=== PATIENT | male | born 1985 | race African-American/Black ===

== ENCOUNTER 2017-06-30 06:15 | Emergency (ER) | payer MEDICAID ==
[~2017-06-30] VITALS: Ht 193 cm; Wt 109.0 kg
[~2017-06-30 06:15] MED LIST: BACTRIM
[2017-06-30] MEDS ORDERED: ACETAMINOPHEN 325MG TABLET PO ONE (07:30)
[2017-06-30] MEDS ORDERED: KETOROLAC 30MG/ML VIAL IM ONE (08:30)
[2017-06-30 09:22] VITALS: BP 120/77
== END 2017-06-30 09:23 | disposition home or self-care (01) ==
LOC: ER 06:15
DX: S10.93XA Contusion of unspecified part of neck, initial encounter (principal); S00.83XA Contusion of other part of head, initial encounter; S30.0XXA Contusion of lower back and pelvis, initial encounter; S40.011A Contusion of right shoulder, initial encounter; F12.10 Cannabis abuse, uncomplicated; J45.909 Unspecified asthma, uncomplicated; V49.49XA Driver injured in collision with other motor vehicles in traffic accident, initial encounter; Y93.89 Activity, other specified; Y92.488 Other paved roadways as the place of occurrence of the external cause; Z88.0 Allergy status to penicillin
CPT/HCPCS: 70450; 73030; 96372; 99284; J1885; Z7610

== ENCOUNTER 2019-04-30 01:52 | Emergency (ER) | payer MEDICAID ==
[~2019-04-30] VITALS: Ht 188 cm; Wt 100.0 kg
[2019-04-30 01:54] VITALS: BP 159/110
[2019-04-30] MEDS ORDERED: BACITRACIN ZINC OINT UDPKT TOP ONE (03:15)
[2019-04-30] MEDS ORDERED: ALPRAZOLAM 0.25 MG TABLET PO ONE (03:15)
[2019-04-30] MEDS ORDERED: KETOROLAC 60MG/2ML VIAL IM ONE (03:15)
== END 2019-04-30 05:13 | disposition home or self-care (01) ==
LOC: ER 01:52
DX: T14.8XXA Other injury of unspecified body region, initial encounter (principal); M25.561 Pain in right knee; J45.909 Unspecified asthma, uncomplicated; F17.210 Nicotine dependence, cigarettes, uncomplicated; Y35.893A Legal intervention involving other specified means, suspect injured, initial encounter; Y93.9 Activity, unspecified; Y92.9 Unspecified place or not applicable; Z88.0 Allergy status to penicillin; Z88.2 Allergy status to sulfonamides; Z88.8 Allergy status to other drugs, medicaments and biological substances
CPT/HCPCS: 71045; 73590; 99283; J1885; Z7610

== ENCOUNTER 2019-05-02 01:36 | Emergency (ER) | payer MEDICAID ==
[~2019-05-02] VITALS: Ht 193 cm; Wt 120.0 kg
[2019-05-02 02:06] VITALS: BP 145/92
[2019-05-02] MEDS ORDERED: KETOROLAC 30MG/ML VIAL IM ONE (04:30)
[2019-05-02] MEDS ORDERED: LORAZEPAM 1MG TABLET PO ONE (05:30)
== END 2019-05-02 05:49 | disposition home or self-care (01) ==
LOC: ER 01:36
DX: M25.532 Pain in left wrist (principal); G40.909 Epilepsy, unspecified, not intractable, without status epilepticus; F12.10 Cannabis abuse, uncomplicated; Z88.0 Allergy status to penicillin; Z88.2 Allergy status to sulfonamides
CPT/HCPCS: 73110; 96372; 99283; J1885

== ENCOUNTER 2019-06-27 14:12 | Emergency (ER) | payer MEDICAID ==
[~2019-06-27] VITALS: Ht 193 cm; Wt 220.0 kg
[2019-06-27] MEDS ORDERED: HYDROCODONE/ACETAMINOPHEN 5/325MG TABLET PO ONE (17:15)
[2019-06-27 17:22] VITALS: BP 135/82
== END 2019-06-27 18:20 | disposition home or self-care (01) ==
LOC: ER 14:12
DX: S97.112A Crushing injury of left great toe, initial encounter (principal); F12.10 Cannabis abuse, uncomplicated; J45.909 Unspecified asthma, uncomplicated; F41.9 Anxiety disorder, unspecified; Z88.2 Allergy status to sulfonamides; Z88.0 Allergy status to penicillin; V03.00XA Pedestrian on foot injured in collision with car, pick-up truck or van in nontraffic accident, initial encounter; Y93.89 Activity, other specified; Y92.488 Other paved roadways as the place of occurrence of the external cause
CPT/HCPCS: 73660; 99283; Z7610

== ENCOUNTER 2019-07-03 18:57 | Emergency (ER) | payer MEDICAID ==
[~2019-07-03] VITALS: Ht 193 cm; Wt 118.0 kg
[2019-07-03] MEDS ORDERED: KETOROLAC 60MG/2ML VIAL IM STA (23:50)
[2019-07-04 01:54] VITALS: BP 155/90
[2019-07-04] MEDS ORDERED: BACITRACIN ZINC OINT UDPKT TOP ONE (02:00)
== END 2019-07-04 01:57 | disposition home or self-care (01) ==
LOC: ER 18:57
DX: S97.82XA Crushing injury of left foot, initial encounter (principal); J06.9 Acute upper respiratory infection, unspecified; F41.9 Anxiety disorder, unspecified; J45.909 Unspecified asthma, uncomplicated; F12.10 Cannabis abuse, uncomplicated; Z88.2 Allergy status to sulfonamides; Z88.0 Allergy status to penicillin; Z88.3 Allergy status to other anti-infective agents; V03.90XA Pedestrian on foot injured in collision with car, pick-up truck or van, unspecified whether traffic or nontraffic accident, initial encounter; Y93.89 Activity, other specified; Y92.488 Other paved roadways as the place of occurrence of the external cause
CPT/HCPCS: 71045; 96372; 99283; J1885

== ENCOUNTER 2020-02-16 19:40 | Inpatient (IN) | payer MEDICAID, OTHER ==
[~2020-02-16] VITALS: Ht 193 cm; Wt 117.9 kg
[2020-02-16] MEDS ORDERED: SODIUM CHLORIDE 0.9% 1000ML BAG (SEPSIS BOLUS) IV ONE (20:15)
[2020-02-16] MEDS ORDERED: ACETAMINOPHEN 325MG TABLET PO ONE (20:15)
[2020-02-16 20:57] LABS: HEMATOCRIT. 40.5 % (42.0-52.0); HEMOGLOBIN. 13.9 g/dL (14.0-18.0); MEAN CORPUSCULAR HEMOGLOBIN 30.5 pg (28.0-32.0); MEAN CORPUSCULAR VOLUME 89.3 fL (80.0-94.0); MEAN PLATELET VOLUME 9.6 fl (7.4-10.4); PLATELET 165 x1000/uL (130-400); RED BLOOD CELL COUNT 4.54 mill/uL (4.7-6.1); RED CELL DISTRIBUTION WIDTH 13.7 % (11.6-14.6)
[2020-02-16 20:58] LABS: CLARITY URINE CLEAR (CLEAR); COLOR URINE YELLOW (YELLOW); KETONES URINE TRACE (NEGATIVE); LEUKOCYTE ESTERASE URINE TRACE (NEGATIVE); NITRITE URINE NEGATIVE (NEGATIVE); OCCULT BLOOD URINE NEGATIVE (NEGATIVE); PROTEIN URINE 1+ (NEGATIVE); SPECIFIC GRAVITY URINE 1.024 (1.005-1.030)
[2020-02-16 20:59] LABS: CHLORIDE 102 mEq/L (98-107)
[2020-02-16 21:03] LABS: ETHANOL BLOOD < 10 mg/dL
[2020-02-16 21:09] LABS: *AMPHETAMINES SCREEN URINE NEGATIVE (NEGATIVE); *BARBITURATES SCREEN URINE NEGATIVE (NEGATIVE); *BENZODIAZEPINES SCREEN URINE PRESUMTIVE POSITIVE (NEGATIVE); *COCAINE SCREEN URINE PRESUMTIVE POSITIVE (NEGATIVE); METHADONE URINE SCREEN NEGATIVE (NEGATIVE); OPIATES URINE SCREEN NEGATIVE (NEGATIVE)
[2020-02-16 21:10] LABS: CANNABINOID URINE SCREEN PRESUMTIVE POSITIVE (NEGATIVE); PHENCYCLIDINE URINE SCREEN NEGATIVE (NEGATIVE)
[2020-02-16 21:49] LABS: PLATELET ESTIMATE NORMAL
[2020-02-16] MEDS ORDERED: SODIUM CHLORIDE 0.9% 1,000 ML IV SCH (23:34)
[2020-02-16] MEDS ORDERED: HYDROCODONE/ACETAMINOPHEN 5/325MG TABLET PO PRN (23:45)
[2020-02-16] MEDS ORDERED: CLONIDINE 0.1MG TABLET PO PRN (23:45)
[2020-02-16] MEDS ORDERED: IPRATROPIUM/ALBUTEROL 0.5-3(2.5)MG/3ML NEB NEB PRN (23:45)
[2020-02-16] MEDS ORDERED: MAGNESIUM/ALUMINUM HYDROXIDE/SIMETHICONE 30ML UDC PO PRN (23:45)
[2020-02-16] MEDS ORDERED: GUAIFENESIN 200MG/10ML SUGAR FREE UDC PO PRN (23:45)
[2020-02-16] MEDS ORDERED: ENOXAPARIN 40MG/0.4ML SYR SUBCUT SCH (23:45)
[2020-02-16] MEDS ORDERED: DOCUSATE SODIUM 100MG CAPSULE PO PRN (23:45)
[2020-02-17] MEDS ORDERED: AZITHROMYCIN 500 MG in DEXT 5% WATER 250 ML IV SCH ×2
[2020-02-17] MEDS: ONDANSETRON HCL 4MG/2ML INJ IV PRN (00:22)
[2020-02-17 00:37] LABS: CHLORIDE 107 mEq/L (98-107)
[2020-02-17] MEDS: ACETAMINOPHEN 325MG TABLET PO PRN ×2 (01:51→13:35)
[2020-02-17 05:38] LABS: BASOPHILS % 0.4 % (0.0-2.0); EOSINOPHILS % 0.1 % (0.0-5.0); HEMATOCRIT. 36.6 % (42.0-52.0); HEMOGLOBIN. 12.4 g/dL (14.0-18.0); LYMPHOCYTES % 19.4 % (20.0-50.0); MEAN CORPUSCULAR HEMOGLOBIN 30.4 pg (28.0-32.0); MEAN CORPUSCULAR VOLUME 89.9 fL (80.0-94.0); MEAN PLATELET VOLUME 9.7 fl (7.4-10.4); MONOCYTES % 14.8 % (2.0-8.0); NEUTROPHILS % 65.3 % (40.0-76.0); PLATELET 149 x1000/uL (130-400); RED BLOOD CELL COUNT 4.07 mill/uL (4.7-6.1); RED CELL DISTRIBUTION WIDTH 13.8 % (11.6-14.6)
[2020-02-17 05:56] LABS: LDL CHOLESTEROL 77 mg/dL (5-100)
[2020-02-17 05:57] LABS: CREATINE KINASE 189 IU/L (39-308)
[2020-02-17 05:58] LABS: HDL CHOLESTEROL 44 mg/dL (40-59)
[2020-02-17 05:59] LABS: CREATINE KINASE MB FRACTION < 1.0 ng/mL (0.5-3.6)
[2020-02-17] MEDS ORDERED: ALPR2TAB2 MT (11:15)
[2020-02-17] MEDS ORDERED: AMLO5TAB88 MT (11:15)
[2020-02-17 11:27] VITALS: BP 156/93
[2020-02-17 12:00] VITALS: BP 152/97
[2020-02-17] MEDS: ENOXAPARIN 30MG/0.3ML SYR SUBCUT SCH ×2 (12:34→21:19)
[2020-02-17] MEDS: ALPRAZOLAM 0.5 MG TABLET PO PRN ×2 (12:34→21:18)
[2020-02-17] MEDS ORDERED: AZITHROMYCIN 250 MG in DEXT 5% WATER 250 ML IV SCH (12:45)
[2020-02-17] MEDS ORDERED: LEVOFLOXACIN 500MG TABLET PO SCH (13:00)
[2020-02-17] MEDS: AMLODIPINE 5MG TABLET PO SCH (13:35)
[2020-02-17 16:00] VITALS: BP 147/94
[2020-02-17 20:00] VITALS: BP 148/99
[2020-02-17] MEDS: AZITHROMYCIN 250 MG in DEXT 5% WATER 250 ML IV SCH (21:17)
[2020-02-17 22:00] VITALS: BP 138/94
[2020-02-18] VITALS: BP 138/94
[2020-02-18 04:00] VITALS: BP 123/67
[2020-02-18 08:00] VITALS: BP 131/84
[2020-02-18] MEDS: AMLODIPINE 5MG TABLET PO SCH (09:03)
[2020-02-18] MEDS: ACETAMINOPHEN 325MG TABLET PO PRN (09:16)
[2020-02-18] MEDS: ONDANSETRON HCL 4MG/2ML INJ IV PRN (09:34)
[2020-02-18 10:04] LABS: CREATINE KINASE 374 IU/L (39-308)
[2020-02-18 10:05] LABS: CREATINE KINASE MB FRACTION < 1.0 ng/mL (0.5-3.6)
[2020-02-18 12:04] VITALS: BP 125/78
[2020-02-18] MEDS: ZINC SULFATE 220 MG ( 50 ) CAPSULE PO SCH (13:57)
[2020-02-18] MEDS: THIAMINE HCL 100MG TABLET PO SCH (13:57)
[2020-02-18] MEDS: ENOXAPARIN 30MG/0.3ML SYR SUBCUT SCH ×2 (13:57→20:48)
[2020-02-18 16:00] VITALS: BP 117/78
[2020-02-18 20:00] VITALS: BP 125/79
[2020-02-18] MEDS: ASCORBIC ACID 500 MG TABLET PO SCH (20:48)
[2020-02-18] MEDS: AZITHROMYCIN 250 MG in DEXT 5% WATER 250 ML IV SCH (20:48)
[2020-02-19] VITALS: BP 106/57
[2020-02-19] MEDS: ACETAMINOPHEN 325MG TABLET PO PRN ×2 (01:26→12:43)
[2020-02-19 04:00] VITALS: BP 110/66
[2020-02-19 08:00] VITALS: BP 110/63
[2020-02-19] MEDS: ASCORBIC ACID 500 MG TABLET PO SCH (08:02)
[2020-02-19] MEDS: THIAMINE HCL 100MG TABLET PO SCH (08:02)
[2020-02-19] MEDS: ZINC SULFATE 220 MG ( 50 ) CAPSULE PO SCH (08:02)
[2020-02-19] MEDS: ENOXAPARIN 30MG/0.3ML SYR SUBCUT SCH (08:03)
[2020-02-19] MEDS: AMLODIPINE 5MG TABLET PO SCH (08:03)
[2020-02-19 08:05] LABS: BASOPHILS % 0.6 % (0.0-2.0); HEMATOCRIT. 44.9 % (42.0-52.0); HEMOGLOBIN. 15.2 g/dL (14.0-18.0); LYMPHOCYTES % 55.3 % (20.0-50.0); MEAN CORPUSCULAR HEMOGLOBIN 30.2 pg (28.0-32.0); MEAN CORPUSCULAR VOLUME 88.9 fL (80.0-94.0); MEAN PLATELET VOLUME 9.6 fl (7.4-10.4); MONOCYTES % 9.6 % (2.0-8.0); NEUTROPHILS % 34.5 % (40.0-76.0); PLATELET 171 x1000/uL (130-400); RED BLOOD CELL COUNT 5.05 mill/uL (4.7-6.1); RED CELL DISTRIBUTION WIDTH 13.8 % (11.6-14.6)
[2020-02-19 08:15] LABS: CHLORIDE 100 mEq/L (98-107)
[2020-02-19 12:00] VITALS: BP 95/59
[2020-02-19 13:10] LABS: HIV SCREEN 4G Non Reactive (Non Reactive)
[2020-02-19 13:22] VITALS: BP 110/63
[2020-02-20] MEDS ORDERED: AZITHROMYCIN 250 MG TABLET PO SCH (21:00)
== END 2020-02-19 17:12 | disposition home or self-care (01) | DRG 720 ==
LOC: ER 19:51 → 7EST 22:47 → ENRESERV 02-17 08:41
PROVIDERS: ADMIT Internal Medicine; ATTEND Internal Medicine
DX: A41.89 Other specified sepsis (principal); U07.1 COVID-19; J96.00 Acute respiratory failure, unspecified whether with hypoxia or hypercapnia; J12.89 Other viral pneumonia; I10 Essential (primary) hypertension; F41.9 Anxiety disorder, unspecified; J45.909 Unspecified asthma, uncomplicated; M79.672 Pain in left foot; F14.10 Cocaine abuse, uncomplicated; F12.10 Cannabis abuse, uncomplicated; G47.00 Insomnia, unspecified; F17.210 Nicotine dependence, cigarettes, uncomplicated; E87.2 Acidosis; Z88.0 Allergy status to penicillin; Z88.2 Allergy status to sulfonamides; Z88.8 Allergy status to other drugs, medicaments and biological substances; Z72.89 Other problems related to lifestyle; Z78.9 Other specified health status; Z59.0 Homelessness
CPT/HCPCS: 36415; 71045; 80048; 80053; 80061; 80305; 80320; 81003; 82550; 82553; 82728; 83036; 83605; 83615; 83735; 84443; 84478; 84484; 85025; 85379; 87389; 87635; 87804; 99285; J0456; J1650; J2405; J7030; J7060; G0480